=== PATIENT | male | born 1940 | race Caucasian/White ===

== ENCOUNTER → 2016-06-30 | Outpatient (CLI) | payer MEDICARE, OTHER ==
[~2016-06-30] MED LIST: ASPIRIN325 MG PO; BENADRYL25 MG PO; CPAP INH; SOTALOL80 MG PO
--- NOTE | ~2016-06-30 | ESTC ---
Cardiac Perfusion Imaging Demographics Patient Name DANIEL Choi Gender Male Patient Number [id number] Race Visit Number [id number] Ethnicity [employer] ID Room Number Accession Number [id number] Height Date of 1940 Weight Age 76 year(s) BSA Referring Karlos Dickinson MD BMI Physician Interpreting Karlos Dickinson MD Date of study 06/30/2016 Physician Supervising /CHARLY Leong NM Technologist NUCLEAR POWER REACTOR OPERATOR Ordering Physician Karlos Dickinson MD Stress Vrtiska Kavin RVT, digital field service technician RDCS Stress ECG Reading Jose Leong Nurse Mario Villalobos Physician NUCLEAR POWER REACTOR OPERATOR Procedure Procedure Type: Nuclear Stress Test:Cardiolite Stress Test Procedure Start time: 06/30/2016 07:34 Indications: Chest pain. Risk Factors The patient risk factors include:family history of premature CAD. Conclusions Summary Cardiolite SPECT images demonstrate a mild inferior reversible defect. No evidence of underlying fixed defect. Normal TID ratio. Gated images demonstrate normal left ventricular systolic function without wall motion abnormalities. LVEF is 59% Stress Protocols Resting ECG RSR Resting HR:63 bpm Resting BP:167/77 mmHg Pre-stress physical exam: Had some intermittent shortness of breath with activity. Stress Protocol:Pharmacologic Peak HR:76 bpm HR response: Appropriate Predicted HR: 145 bpm BP response: Appropriate % of predicted HR: 52 Reason for termination:Infusion complete Symptoms Shortness of breath. Stress Interpretation Appropriate hemodynamic response to Lexiscan. No significant ST-T wave changes with Lexiscan. ECG portion is negative for ischemia by diagnostic criteria. Stress supervision and interpretation provided by Quita Garcia APRN . Imaging Results Summed scores - Summed stress score: 7 - Summed rest score: 6 - Summed difference score: 1 Stress ejection Ejection fraction:59 % EDV :112 ml ESV :46 ml Stroke volume :66 ml LV mass :135 gr Imaging Protocols Rest Stress Isotope:Tc99m Sestamibi IV Isotope: Tc99m Sestamibi IV Isotope dose:14.3 mCi Isotope dose:42.6 mCi Date:06/30/2016 07:25 Date:06/30/2016 08:42 Technique: SPECT Technique: Gated Supine SPECT Supine Scan Time:45-60 minutes post Scan Time:45-60 minutes post injection injection Procedure Medications - Regadenoson (Lexiscan) 0.4 mg IV over 10-15 sec. I.V. 0.4 mg. Medical History Admission Data Admission date: 06/30/2016 Admission Time: 07:12 Hospital Status: Outpatient. Signatures dtt: Alok Everett (cardio) dtd: 06/30/16 0734 Physician Self Edit
== END | disposition disaster alternative care site (69) ==
LOC: GRAD 06-25 07:15
DX: R07.89 Other chest pain (principal); Z82.49 Family history of ischemic heart disease and other diseases of the circulatory system
CPT/HCPCS: A9500; J2785

== ENCOUNTER 2016-07-22 08:51 | Outpatient (CLI) | payer MEDICARE, OTHER ==
[~2016-07-22] VITALS: Ht 182.9 cm; Wt 96.3 kg
--- NOTE | ~2016-07-22 | CATH ---
Cardiac Diagnostic Report Demographics Patient Name DANIEL Choi Gender Male Date of 1940 Age 76 year(s) Patient Number [id number] Date of Study 07/22/2016 Visit Number [id number] Room Number G63[address] [place] [id number] Ht 182.88 cm Wt 96.3 kg Referring Zeeshan Mathis Primary Physician Physician COUPON AND BOND COLLECTION CLERK Performing Karlos Dickinson MD Secondary Physician Physician Diagnostic Karlos Dickinson MD Assisting Physician Physician Interventional Physician Rotary Helper Physician Findings and Conclusions Diagnostic Findings and Conclusion Nonobstructive CAD. Diagnostic Recommendations Medical therapy. Procedure Description The patient was brought to the diagnostic cardiac catheterization-EP laboratory in the fasting, non-sedated state. Informed consent was obtained in the written and verbal form after the risks and benefits were explained. The patient had no further questions and agreed to proceed. The planned puncture-incision site(s) were shaved and prepped with ChloraPrep and draped in the usual sterile manner. Conscious sedation, supplemental oxygen, and pain control medications were delivered by a registered nurse under physician guidance. Surface ECG rhythm, blood pressure measurement, and pulse oximetry were monitored throughout the procedure. Arterial access. The access site was infiltrated with lidocaine. The vessel was entered with the Seldinger technique. A sheath was advanced into the vessel and used for catheter placement. Selective left coronary angiography. A catheter was advanced into the left coronary vessel ostium under Fluoroscopic guidance. Contrast was injected by hand. Images were obtained in multiple projections. Selective right coronary angiography. A catheter was advanced into the right coronary vessel ostium under fluoroscopic guidance. Contrast was injected by hand. Images were obtained in multiple projections. Left heart catheterization with ventriculography. A catheter was advanced across the aortic valve to the left ventricle under fluoroscopic guidance. Resting hemodynamics were obtained. With the catheter at the left ventricular apex, contrast was injected. Images were obtained in SADIA projections. Post-ventriculography LV pressure was obtained. The catheter was gradually withdrawn into the aorta with continuous pressure recording. Arterial artery hemostasis was achieved. The patient was transferred to a regular nursing floor via cart accompanied by a nurse. The patient left the laboratory in stable condition. Diagnostic Cath Status: Elective Procedure Procedure Type Diagnostic procedure:Ventriculogram:, Left, Angiography:, Coronary Angios w/[facility] Indications: Abnormal Stress Test. The procedure was explained in detail to the patient. Risks, complications and alternative treatments were reviewed. Written consent was obtained. Medications Reviewed with Patient prior to Procedure. Angiographic Findings Dominance: Left Cardiac Arteries and Lesion Findings LMCA: Normal (0% Stenosis).Medium, normal. LAD: Normal (0% Stenosis).Medium, small plaque promixal. Diagonal medium, normal. LCx: Normal (0% Stenosis).Dominant, large, normal. OM 1 small to medium, normal. PDA off LCX, medium, normal. RCA: Normal (0% Stenosis).Medium, Nondominant. Normal. Procedure Data Procedure Date Date: 07/22/2016Start: 12:03 PMEnd: 12:21 PM Entry Locations - Retrograde Percutaneous access was performed through the Right Femoral artery (Primary location). A 6 Fr sheath was inserted. Hemostasis was successfully obtained using Perclose ProGlide ([employer]). Closure Comments: Deployed by RT. Michelle. Procedure Medications Order and Administration + + +-------+------+ !Time !Medication !Dosage !Route ! + + +-------+------+ !07/22/2016 12:03 PM !Versed !1 mg !I.V. ! + + +-------+------+ !07/22/2016 12:03 PM !Fentanyl !50 mcg !I.V. ! + + +-------+------+ !07/22/2016 12:20 PM !Fentanyl !50 mcg !I.V. ! + + +-------+------+ Devices Used - A6 Fr. BS JL 4 Diag. Catheterwas used for:Left coronary angiography. - A6 Fr. BS JR 4 Diag. Catheterwas used for:Right coronary angiography. - A6 Fr. BS Angled Pigtail Diag. Catheterwas used for:Left ventriculography. Contrast Material - Isovue 47584 ml Fluoroscopy Time: Diagnostic: 2:54 minutes. Total: 2:54 minutes. Fluoroscopy Dose: Diagnostic: 726 mGy. Total: 726 mGy. Estimated Blood Loss: 5 ml. Medical History Performed Procedures and Imaging Results - Stress testing with SPECT MPIwas performed. Results were: Positive. Risk/Extent of ischemia was: Intermediate risk. Allergies - Antibiotics:(Erythromycin). Risk Factors The patient risk factors include:family history of premature CAD. Admission Data Admission Date: 07/22/2016 Admission Time: 08:51 AM Admit Source: Other Insurance Payors: Medicare. Admission Medications + +------+------+ + + + + !Medication !Dosage!Times !Last !Last !Administered !Comments ! ! ! !Per !Delivery !Delivery ! ! ! ! ! !Day !Date !Time ! ! ! + +------+------+ + + + + !Aspirin ! ! ! ! !Yes ! ! !(any) ! ! ! ! ! ! ! + +------+------+ + + + + !Beta ! ! ! ! !Yes ! ! !Florentin ! ! ! ! ! ! ! !(any) ! ! ! ! ! ! ! + +------+------+ + + + + Clinical Evaluation Leading to Procedure - The patient's CAD presentation was assessed as: Stable angina. - The patient's anginal syndrome during the past two weeks was assessed as: Class II according to the [place] Cardiovascular Society Classification System (CCS). Anti-anginal medications were prescribed during the past two weeks. The medication is: Beta Blockers. [facility] Ventriculography Findings Mild inferoapical HK. LV function assessed as:Normal. Ejection Fraction - Method: LV gram. EF%: 55. Hemodynamics Condition: Rest O2 Consumption: Estimated: 237.91Heart Rate: 53 bpm Pressures (mmHg) +-----+ + !Site !Pressure ! +-----+ + !AO !173/148 (151) ! +-----+ + !AO !137/82 (109) ! +-----+ + !AO !139/70 (103) ! +-----+ + !LV !166/3 ,21 ! +-----+ + !LV !148/1 ,24 ! +-----+ + !LV !154/4 ,28 ! +-----+ + !LV !152/2 ,26 ! +-----+ + !AO !148/65 (99) ! +-----+ + !LV !148/3 ,25 ! +-----+ + !AO !151/70 (106) ! +-----+ + Valve Gradients and Areas + +---------+---------+---------+ +---------+ + !Valve !Peak !Mean !Area !Index !Flow !Source ! + +---------+---------+---------+ +---------+ + !Aortic !1 !0 ! ! ! ! ! + +---------+---------+---------+ +---------+ + !Aortic !1 !0 ! ! ! ! ! + +---------+---------+---------+ +---------+ + Shunts Oxygen Values O2 Capacity 193.12 O2 Consumption 237.91 Discharge Data Discharge Date: 07/22/2016 Hospital Status: Outpatient Signatures dtt: Alok Everett (cardio) dtd: 07/22/16 1203 Physician Self Edit
[~2016-07-22 08:51] MED LIST changes: -BENADRYL25 MG PO
[2016-07-22] MEDS ORDERED: BENADRYL25 MG PO (09:24)
== END 2016-07-22 15:46 | disposition disaster alternative care site (69) ==
LOC: GCAT 08:51 → GPCU 08:51 → GPOC 09:00 → GCAT 15:46
PROC: B2151ZZ Fluoroscopy of Left Heart using Low Osmolar Contrast (ICD-10-PCS; principal; 2016-07-22)
PROC: 4A023N7 Measurement of Cardiac Sampling and Pressure, Left Heart, Percutaneous Approach (ICD-10-PCS; principal; 2016-07-22)
PROC: B2111ZZ Fluoroscopy of Multiple Coronary Arteries using Low Osmolar Contrast (ICD-10-PCS; principal; 2016-07-22)
DX: I20.8 Other forms of angina pectoris (principal); I48.0 Paroxysmal atrial fibrillation; G47.33 Obstructive sleep apnea (adult) (pediatric); E66.3 Overweight; R94.39 Abnormal result of other cardiovascular function study; Z79.82 Long term (current) use of aspirin; Z79.899 Other long term (current) drug therapy; Z82.49 Family history of ischemic heart disease and other diseases of the circulatory system
CPT/HCPCS: C1760; J1644; J2250; J3010; J7030